=== PATIENT | male | born 1970 | race Hispanic/Latino ===

== ENCOUNTER 2018-03-13 20:55 | Inpatient (IN) | payer SELFPAY ==
[~2018-03-13 20:55] MED LIST: Calcium Chloride 1 GM/10 ML Abboject SYRINGE ONE; Dexamethasone 20 MG/5 ML VIAL ONE; Glycopyrrolate 0.2 MG/ML 5 ML SYRINGE ONE; ISOVUE-370 76%-LOCM 1 ML ONE; Ondansetron HCl/PF 4 MG/2 ML Vial ONE; PHENYLEPHRINE-NS 100 MCG/ML 10 ML SYRINGE ONE; Sodium Bicarb 50 MEQ/50 ML Abboject 8.4% SYRINGE ONE; Succinylcholine Chloride 20 MG/ML 10 ml SYRINGE FS ONE
[2018-03-13 21:41] LABS: Band 24 % (5-11); Hemoglobin 15.3 g/dL (14.0-18.0); Lymphocytes 8 % (21-51); MDiff Complete? YES; Mean Corpuscular HGB CONC 35.2 g/dL (32.0-36.0); Mean Corpuscular Hemoglobin 33.3 pg (27.0-31.0); Mean Corpuscular Volume 94.5 fL (78.0-98.0); Mean Platelet Volume 9.2 fL (7.4-10.4); Monocytes 4 % (0-10); Neutrophil 64 % (42-75); PLT Morphology Comment PLT clumps seen-ADEQ; Platelet Clumps MODERATE; RBC Distribution Width 12.3 % (11.5-14.5); Red Blood Cell (RBC) Count 4.59 mill/uL (4.70-6.10); White Blood Cell (WBC) Count 18.3 thou/uL (4.8-10.8)
[2018-03-13 21:47] LABS: ALT (SGPT) 71 U/L (8-55); AST (SGOT) 40 U/L (5-34); Albumin 4.4 g/dL (3.5-5.0); Alkaline Phosphatase 68 U/L (40-150); Anion Gap 16 mmol/L (10-20); BUN (Urea Nitrogen) 23 mg/dL (8.9-20.6); Bilirubin, Total 1.6 mg/dL (0.2-1.2); CK (CPK) 148 U/L (30-200); Calc. Creatinine Clearance 0 mL/min (70-130); Calcium 9.6 mg/dL (7.8-10.44); Carbon Dioxide 21 mmol/L (22-29); Chloride 105 mmol/L (98-107); Estimated GFR-MDRD 36; Globulin 3.4 g/dL (2.4-3.5); Glucose 164 mg/dL (70-105); Protein, Total 7.8 g/dL (6.0-8.3); Sodium 139 mmol/L (136-145)
[2018-03-13 21:50] LABS: Potassium 2.9 mmol/L (3.5-5.1)
[2018-03-13] MEDS ORDERED: Piperacillin/Tazobactam 3.375 GM in Sodium Chloride 0.9% 100 ML IVPB SCH (22:00)
--- NOTE | 2018-03-13 22:17 | CT ---
CONTRAST ENHANCED CT ABDOMEN AND PELVIS: TECHNIQUE: IV contrast was given. Oral contrast was not given, per the order of the ordering physician. FINDINGS: The lung bases demonstrate a small area of calcification in the right middle lobe. The liver and spl een are unremarkable. The gallbladder has been surgically removed. The pancreas is unremarkable. T he adrenal glands and kidneys are unremarkable, except for a nonobstructing, approximately 2 mm calcu jeanie in the lower pole of the left kidney. Additional small mid pole left renal calculi are also pres ent. There is abnormal dilatation and some enhancement of the mid and distal small bowel loops, compatible with enteritis. There is also abnormal dilatation and enhancement involving the appendix, dilated up to approximately 8 mm. There is also some periappendiceal fat stranding. Findings concerning for appendicitis. There is also enhancement and some thickening involving the ascending colon and hepatic flexure, conc erning for colitis. IMPRESSION: Enteritis, colitis, and appendicitis changes. Findings discussed with Dr. Patel at 10:08 p.m. on 03/13/2018. CODE CR POS: [id number]
[2018-03-13] MEDS ORDERED: Potassium Chloride 40 MEQ in Sodium Chloride 0.9% 250 ML 250 ML IVPB SCH (22:30)
[2018-03-13] MEDS ORDERED: Norepinephrine 8 MG/250 ML BAG IVPB PRN (22:38)
[2018-03-13] MEDS ORDERED: Bupivacaine HCl 0.25%/Epi 0.0005/PF 10 ML VIAL FS ONE (22:42)
[2018-03-13] MEDS ORDERED: Fentanyl 100 MCG/2 ML VIAL ONE (23:00)
[2018-03-13 23:08] LABS: Bilirubin Small (Negative); Blood, Urine Negative (Negative); Clarity CLOUDY (Clear); Glucose, Urine (Dipstick) 100 mg/dL (Negative); Leukocyte Small (Negative); Nitrite Negative (Negative); Protein, Urine (Dipstick) 100 mg/dL (Neg-Trace); Specific Gravity, Urine 1.019 (1.002-1.036)
[2018-03-13 23:10] LABS: Bacteria/HPF None Seen HPF (None Seen); Yeast-AUWi Flag 18.8 (0-25.0)
[2018-03-13 23:25] LABS: Hyaline Casts/LPF >50 HYALINE CAST LPF (0-3 Hyaline); Other Casts/LPF 0-3 WBC CASTS LPF (0-3 Hyaline)
[2018-03-13 23:26] LABS: Renal Epithelial 0-3 HPF (0-3)
[2018-03-14] MEDS ORDERED: Promethazine HCl 25 MG/ML VIAL IM PRN ×2 (00:15→01:26)
[2018-03-14] MEDS ORDERED: Morphine 4 MG/ML Carpuject SLOW IVP PRN (00:15)
[2018-03-14] MEDS ORDERED: Dextrose 5% in Water 1,000 ML IV PRN (00:15)
[2018-03-14] MEDS ORDERED: Dextrose 50% Abboject 50 ML SYRINGE SLOW IVP PRN (00:15)
[2018-03-14] MEDS ORDERED: HYDROcodone/Acetaminophen 10/325 mg Tablet PO PRN (00:15)
[2018-03-14] MEDS ORDERED: hydrALAZINE 20 MG/ML VIAL SLOW IVP PRN (00:15)
[2018-03-14] MEDS ORDERED: Insulin Regular 300 UNITS/3 ML VIAL SC PRN (00:15)
[2018-03-14] MEDS ORDERED: SUGAMMADEX SODIUM 200 MG/2 ML VIAL ONE (00:23)
[2018-03-14] MEDS ORDERED: Naloxone HCl 0.4 mg/ml Vial ONE (00:31)
[2018-03-14] MEDS ORDERED: PHENYLEPHRINE-NS 100 MCG/ML 10 ML SYRINGE ONE ×2 (00:36→00:47)
[2018-03-14] MEDS ORDERED: Succinylcholine Chloride 20 MG/ML 10 ml SYRINGE FS ONE (00:38)
[2018-03-14] MEDS ORDERED: Calcium Chloride 1 GM/10 ML Abboject SYRINGE ONE (00:46)
[2018-03-14] MEDS ORDERED: Sodium Bicarb 50 MEQ/50 ML Abboject 8.4% SYRINGE ONE (00:46)
[2018-03-14] MEDS ORDERED: Promethazine HCl 25 MG/ML VIAL SLOW IVP PRN (01:26)
[2018-03-14] MEDS ORDERED: Ondansetron HCl/PF 4 MG/2 ML Vial IVP PRN (01:26)
[2018-03-14] MEDS ORDERED: Albumin 5% 500 ML ONE (01:45)
--- NOTE | 2018-03-14 01:59 | OP ---
DATE OF PROCEDURE: 03/14/2018 PREOPERATIVE DIAGNOSIS: Acute appendicitis. SURGEON: Fernandez Mehta M.D. PROCEDURE PERFORMED: Laparoscopic appendectomy. INDICATIONS: This is a 48-year-old male who presented with a day and a half history of right lower q uadrant pain. CT shows acute appendicitis. FINDINGS: He had a gangrenous appendix with local perforation. PROCEDURE IN DETAIL: After informed consent was obtained, the patient was taken to the operating brauilo m and given general endotracheal anesthesia. He was placed in the supine position. The abdomen was prepped and draped in usual fashion. Local anesthesia infiltrated subcutaneously and deep. A subumb ilical incision was performed. Subcu divided sharply. The fascia grasped and two stay sutures of 0 Vicryl placed each side of midline. Midline incised. Digital palpation revealed no local adhesions. A blunt 10-12 mm trocar inserted. Pneumoperitoneum was created to a pressure of 15 mmHg. Zero deg ree laparoscope inserted under direct vision, two 5-mm ports were placed, one suprapubic and one righ t lateral abdomen. The appendix was gangrenous. The mesoappendix was divided utilizing the LigaSure . The base of the appendix divided utilizing the linear 45 mm white load stapler. The appendix was placed in an Endosac and removed from the abdomen through the umbilicus in the Endosac. Hemostasis a ssured, but there was some purulent-looking fluid. This was aspirated and collected in a trap for cu lture. Then, the abdomen was irrigated. A drain was placed and brought out through the suprapubic a ana and placed along the pelvis and right gutter. Trocars and retractors removed. The fascia closed with interrupted 0 Vicryl suture. The skin closed with interrupted 4-0 Rapide. Dermabond applied. The patient tolerated the procedure well and was transferred to recovery in fair condition.
[2018-03-14] MEDS ORDERED: Potassium Chloride 10 MEQ in Premix Bag 1 BAG IVPB SCH (02:00)
--- NOTE | 2018-03-14 02:18 | HP ---
CHIEF COMPLAINT: Right lower quadrant abdominal pain. HISTORY OF PRESENT ILLNESS: A 48-year-old male with a 1.5-day history of right lower quadrant pain a ssociated with nausea, vomiting, decreased appetite. He came in hypotensive and was given 3 liters o f IV fluids, his pressure has come up some. PAST MEDICAL HISTORY: Anxiety. PAST SURGICAL HISTORY: Kidney stones. MEDICATIONS: None. SOCIAL HISTORY: No alcohol, tobacco. He is . ALLERGIES: No known drug allergies. PHYSICAL EXAMINATION: VITAL SIGNS: Temperature 98.1, pulse 110, blood pressure 82/56. GENERAL: He is awake, alert, lying still. HEENT: Unremarkable. LUNGS: Clear. HEART: Regular rate and rhythm. ABDOMEN: Soft, nondistended, percussion, tenderness in right lower quadrant. EXTREMITIES: Unremarkable. LABORATORY AND X-RAY FINDINGS: White count 18.3, H and H of 15 and 43. He has , electrolytes s how an elevated glucose at 164. His potassium is 2.9. His creatinine is 1.99, BUN is 25. Total elijah irubin is 1.6, AST of 40, ALT of 71. CT shows acute appendicitis with some dilatation of the mid and distal small bowel loops and thickening of these loops. ASSESSMENT: Acute appendicitis. PLAN: Laparoscopic appendectomy. CONSENT: I discussed the planned procedure as well as risk of bleeding, infection, injury to bowel, bladder, need to open. He understands and gives informed consent.
[2018-03-14] MEDS: Lactated Ringer's 1,000 ML IV SCH ×3 (03:03→20:11)
[2018-03-14 03:06] VITALS: BMI 31.0
[2018-03-14 03:46] LABS: Anion Gap 11 mmol/L (10-20); BUN (Urea Nitrogen) 17 mg/dL (8.9-20.6); Calc. Creatinine Clearance 103 mL/min (70-130); Calcium 8.8 mg/dL (7.8-10.44); Carbon Dioxide 24 mmol/L (22-29); Chloride 110 mmol/L (98-107); Estimated GFR-MDRD 73; Glucose 149 mg/dL (70-105); Potassium 3.6 mmol/L (3.5-5.1); Sodium 141 mmol/L (136-145)
[2018-03-14 04:47] LABS: Band 37 % (5-11); Lymphocytes 5 % (21-51); MDiff Complete? YES; Mean Corpuscular Hemoglobin 33.5 pg (27.0-31.0); Mean Corpuscular Volume 95.7 fL (78.0-98.0); Mean Platelet Volume 7.5 fL (7.4-10.4); Monocytes 1 % (0-10); Neutrophil 57 % (42-75); PLT Morphology Comment Appears Adequate; Platelet Count 150 thou/uL (130-400); RBC Distribution Width 12.3 % (11.5-14.5); Red Blood Cell (RBC) Count 3.58 mill/uL (4.70-6.10); White Blood Cell (WBC) Count 14.8 thou/uL (4.8-10.8)
--- NOTE | 2018-03-14 08:35 | RAD ---
CHEST 1 VIEW: HISTORY: Central line placement. FINDINGS: Cardiac silhouette is magnified by projection. Pulmonary vasculature is slightly engorged with mild bilateral perihilar infiltrates, most pronounced at each suprahilar level. A very small amount of pl eural fluid right minor fissure. Linear atelectasis right lung base. No evidence of pneumothorax on this portable supine exam. IMPRESSION: Bilateral hilar prominence favored to represent borderline pulmonary vascular congestion. Continued radiographic followup suggested. POS: CHAY
[2018-03-14] MEDS: Famotidine/PF 20 mg/2ml Vial SLOW IVP SCH ×2 (09:15→20:11)
[2018-03-14] MEDS: Enoxaparin Sodium 40 MG/0.4 ML SYRINGE SC SCH (09:15)
[2018-03-14 10:41] LABS: ALT (SGPT) 150 U/L (8-55); AST (SGOT) 114 U/L (5-34); Albumin 3.5 g/dL (3.5-5.0); Alkaline Phosphatase 42 U/L (40-150); Bilirubin, Total 1.9 mg/dL (0.2-1.2); Protein, Total 5.6 g/dL (6.0-8.3)
--- NOTE | 2018-03-14 10:48 | CON ---
DATE OF CONSULTATION: 03/14/2018 SERVICE: Pulmonary Medicine REASON FOR CONSULTATION: ICU patient. HISTORY OF PRESENT ILLNESS: The patient is a 48-year-old male with past medical history significant for essentially nothing who presented to the hospital with a 1-2 day history of right lower quadrant abdominal discomfort, nausea and vomiting. He presented to the Emergency Department and was ultimately discovered to have appendicitis. On a surgical exploration, it was noted to be gangrenous with a mild perforation. In the postop period, he became unstable and was not moving very much air. He was not breathing well. He was bridged with a little bit of BiPAP. This morning, he is off the BiPAP and he is breathing comfortably. I have aggressively wean down his oxygen down to room air. He denies any shortness of breath, nausea or vomiting. He is having flatus, but has not passed any stools. His abdominal pain is still present, but significantly improved compared to presentation based on his recollection. PAST MEDICAL HISTORY: Anxiety disorder. PAST SURGICAL HISTORY: 1. Surgical procedure for nephrolithiasis. 2. Appendectomy. SOCIAL HISTORY: Negative for alcohol, tobacco or illicit drug use. He is . He is Croatian speaking primarily. FAMILY HISTORY: Noncontributory. ALLERGIES: No known drug allergies. MEDICATIONS: List of his inpatient medications were reviewed. No specific updates were made at this time. REVIEW OF SYSTEMS: General, head, ears, eyes, nose, throat, cardiovascular, respiratory, GI, , musculoskeletal, neurologic and skin is negative except as mentioned in the HPI. PHYSICAL EXAMINATION: VITAL SIGNS: Afebrile, pulse 93, blood pressure 98/66, respirations 25, saturation 95% on room air. GENERAL: The patient is awake and alert, in no apparent distress. LUNGS: Decent air entry. Rhonchi are present, but clear with cough. No prolonged expiratory phase, wheezing or crackles are appreciated. HEART: Normal rate, regular. ABDOMEN: Soft. It is tender to palpation which is worse in the right lower quadrant. That being said, there is no rebound or guarding present. Bowel sounds are active. GENITOURINARY: Frank catheter in place. NEUROLOGIC: Grossly nonfocal. LABORATORY DATA: WBC 14.8 and down trending, hemoglobin 12.0, platelets 150, 000. Band count is 37%, which is up trending. Creatinine 1.08 and improving, potassium 3.6. Basic metabolic profile is otherwise unremarkable. Lactate is trending downward to 2.0. AST and ALT are marginally elevated. Total bilirubin 1.6. Urinalysis is positive for protein, glucose, and trace ketones. Otherwise, it is equivocal. Blood cultures x2 are unremarkable. IMAGIN. Chest x-ray demonstrates pulmonary vascular congestion which is quite mild. No acute cardiopulmonary abnormalities otherwise identified. 2. CT of the chest demonstrates a calcified pulmonary nodule. No obvious consolidation is present. There is a small rim of pleural effusions which appear to be bilateral. Findings consistent with appendicitis are present. ASSESSMENT: 1. Severe sepsis. 2. Acute kidney injury. 3. Acute appendicitis. 4. Acute hypoxic respiratory failure, resolved. PLAN: The patient is really doing well. My suspicion is that his hypoxic event was either associated with the anesthesia and hypoventilation, or the fluid resuscitation. Either way, he has been weaned down to room air, he is not requiring any Levophed. His blood pressures are firming up nicely. The patient actually feels much improved. We will transition him out of the ICU to the surgical unit. If he continues to do well, he will likely be transitioned to p.o. antibiotics and discharged from the hospital tomorrow morning. Pulmonary will continue to follow for the time being. 70 minutes have been devoted to this patient in various activities. I personally reviewed all imaging studies and laboratory data noted within this document. For fifty percent of this time, I was interacting with the patient at the bedside or coordinating care with the care team. For the remainder of the time I was immediately available to the patient in the hospital unit. FLACO
[2018-03-14] MEDS: Piperacillin/Tazobactam 3.375 GM in Sodium Chloride 0.9% 100 ML IVPB SCH ×5 (12:14→23:00)
--- NOTE | 2018-03-14 12:32 | ULT ---
RIGHT UPPER QUADRANT ULTRASOUND: Date: 03-14-18 Comparison: None. History: Abnormal liver function tests. Technique: Multiplanar grayscale sonographic imaging of the right upper quadrant obtained. FINDINGS: The mail courier reports a negative Patel's sign. The pancreas is not well visualized secondary to donny wel gas. The hepatic parenchyma is echogenic and heterogeneous, suggesting hepatocellular disease, horner ch as steatosis. Common bile duct measures 6 mm, within normal limits, given history of cholecystectomy. Right kidney measures 10.3 cm in craniocaudal dimension and demonstrates no stone, hydronephrosis or mass. IMPRESSION: Findings suggesting hepatic steatosis. The patient is status post cholecystectomy. No biliary dilatat ion noted. POS: CHAY
[2018-03-14] MEDS: HYDROcodone/Acetaminophen 10/325 mg Tablet PO PRN (22:52)
[2018-03-15] MEDS: Lactated Ringer's 1,000 ML IV SCH (05:21)
[2018-03-15] MEDS: Piperacillin/Tazobactam 3.375 GM in Sodium Chloride 0.9% 100 ML IVPB SCH (05:21)
[2018-03-15] MEDS: Ondansetron HCl/PF 4 MG/2 ML Vial IVP PRN (05:28)
[2018-03-15 07:47] LABS: #Eosinphils 0.1 thou/uL (0.0-0.7); #Lymphocytes 1.1 thou/uL (1.20-3.40); #Monocytes 0.6 thou/uL (0.11-0.59); #Neutrophils 8.8 thou/uL (1.40-6.50); %Basophils 0.2 % (0.0-1.0); %Eosinophils 0.6 % (0.0-10.0); %Lymphocytes 10.5 % (21.0-51.0); %Monocytes 5.7 % (0.0-10.0); %Neutrophils 83.1 % (42.0-75.0); Hemoglobin 11.9 g/dL (14.0-18.0); Mean Corpuscular HGB CONC 34.4 g/dL (32.0-36.0); Mean Corpuscular Hemoglobin 33.4 pg (27.0-31.0); Mean Corpuscular Volume 97.3 fL (78.0-98.0); Mean Platelet Volume 9.3 fL (7.4-10.4); Platelet Count 124 thou/uL (130-400); RBC Distribution Width 12.4 % (11.5-14.5); Red Blood Cell (RBC) Count 3.56 mill/uL (4.70-6.10); White Blood Cell (WBC) Count 10.5 thou/uL (4.8-10.8)
[2018-03-15] MEDS: HYDROcodone/Acetaminophen 10/325 mg Tablet PO PRN ×3 (08:06→22:57)
[2018-03-15] MEDS: Famotidine 20 MG TAB PO SCH ×2 (08:06→20:51)
[2018-03-15] MEDS: Enoxaparin Sodium 40 MG/0.4 ML SYRINGE SC SCH (08:07)
[2018-03-15] MEDS: Piperacillin/Tazobactam 3.375 GM, IV Admixture Fee-Chemo 1 UNITS in Sodium Chloride 0.9... IVPB SCH ×3 (12:03→23:50)
--- NOTE | 2018-03-15 14:37 | PRG ---
DATE OF SERVICE: 03/15/2018 SERVICE: Pulmonary Medicine. INTERVAL HISTORY: The patient is doing great from a respiratory standpoint. He has been up walking the halls. He tripped a little bit and his IV came dislodged. He was leaking a little bit of fluid. That being said, he has really made turn in a positive direction. While he has been up walking masha und, he has not had any significant orthostasis. PHYSICAL EXAMINATION: VITAL SIGNS: Afebrile, pulse 71, blood pressure 110/72, respirations 14, saturation 95% on room air. GENERAL: The patient is awake, alert, in no apparent distress. LUNGS: Excellent air entry. There is no prolonged expiratory phase or wheezing present. HEART: Normal rate and regular. ABDOMEN: Soft, nontender, nondistended. Bowel sounds are positive. MUSCULOSKELETAL: No cyanosis or clubbing. There is no pitting in the bilateral lower extremities. NEUROLOGIC: Grossly nonfocal. LABORATORY DATA: WBC 10.5, hemoglobin 11.9, platelets 124,000 and improving. AST and ALT are gently up-trending, direct bilirubin 1.0, total bilirubin 1.9 and gently up-trending. Basic metabolic prof ile is, otherwise, unremarkable. Potassium has improved to 3.6. Lactate has resolved to 2.0. Perit cooper fluid is growing Klebsiella and Enterobacter. Urine cultures negative to date. Blood cultures are growing Klebsiella pneumoniae in 1/2 and are gram-negative puma in the other. IMAGING: Abdominal ultrasound demonstrates hepatic steatosis. Patient is now status post cholecyste ctomy. No biliary dilatation is identified. ASSESSMENT: 1. Severe sepsis. 2. Acute kidney injury, resolved. 3. Acute appendicitis. 4. Bacteremia secondary to Klebsiella pneumoniae. 5. Acute hypoxic respiratory failure, resolved. DISCUSSION AND PLAN: The patient is really doing quite well from a respiratory standpoint. We will need to await the sensitivities of the Klebsiella and get him on antibiotics directed at that. He wi ll likely need to stay in the hospital until those sensitivities result. Hopefully, we can get by wi th p.o. fluoroquinolone. He will need a minimum of 2 weeks of antibiotics. At this point, he has no further requirements for Critical Care opinion and I will sign off. Please call with additional que stions or concerns moving forward.
[2018-03-16] MEDS: Ondansetron HCl/PF 4 MG/2 ML Vial IVP PRN (02:09)
[2018-03-16] MEDS: HYDROcodone/Acetaminophen 10/325 mg Tablet PO PRN (05:06)
[2018-03-16] MEDS: Piperacillin/Tazobactam 3.375 GM, IV Admixture Fee-Chemo 1 UNITS in Sodium Chloride 0.9... IVPB SCH ×2 (05:59→12:42)
[2018-03-16 06:37] LABS: ALT (SGPT) 114 U/L (8-55); AST (SGOT) 40 U/L (5-34); Albumin 3.7 g/dL (3.5-5.0); Alkaline Phosphatase 48 U/L (40-150); Anion Gap 10 mmol/L (10-20); BUN (Urea Nitrogen) 10 mg/dL (8.9-20.6); Bilirubin, Total 0.8 mg/dL (0.2-1.2); Calc. Creatinine Clearance 130 mL/min (70-130); Calcium 8.5 mg/dL (7.8-10.44); Carbon Dioxide 26 mmol/L (22-29); Chloride 104 mmol/L (98-107); Estimated GFR-MDRD Greater than 90; Globulin 2.7 g/dL (2.4-3.5); Glucose 97 mg/dL (70-105); Potassium 3.6 mmol/L (3.5-5.1); Protein, Total 6.4 g/dL (6.0-8.3); Sodium 136 mmol/L (136-145)
[2018-03-16] MEDS: Famotidine 20 MG TAB PO SCH (08:32)
[2018-03-16] MEDS: Enoxaparin Sodium 40 MG/0.4 ML SYRINGE SC SCH (08:32)
[2018-03-16 11:24] VITALS: BP 116/77; TEMP 98.2
--- NOTE | 2018-03-16 15:23 | DIS ---
DISCHARGE DIAGNOSIS: Acute ruptured appendicitis with sepsis. PROCEDURES DURING ADMISSION: Laparoscopic appendectomy and drainage of periappendiceal abscess. HOSPITAL COURSE: The patient was admitted. He was hypotensive. He responded somewhat to fluid bolu ses. He was taken to the operating room where he underwent a laparoscopic appendectomy and was found to have a ruptured appendicitis. Postoperatively, he remained somewhat hypertensive, but with fluid and support, he did better. He was observed in the ICU overnight. The next day, he felt much annemarie r. He is now tolerating a diet. His bowels are working well. He is afebrile. He has minimal pain, minimal drain output, drain has been removed. His temperature is 98.3, pulse 73, blood pressure 118 /76. He is discharged home in good condition on doxycycline 100 p.o. b.i.d. for 14 days, Maria Guadalupe and Mathew sears. He will follow up with me in 2 weeks.
== END 2018-03-16 13:10 | disposition home or self-care (01) | DRG 853 ==
LOC: ERS 20:55 → SDC 23:15 → CCU 03-14 00:15 → SURG A 03-14 11:33
PROVIDERS: ADMIT Surgery; ATTEND Surgery
PROC: 0DTJ4ZZ Resection of Appendix, Percutaneous Endoscopic Approach (ICD-10-PCS; principal; 2018-03-14)
DX: A41.9 Sepsis, unspecified organism (principal); K35.3 Acute appendicitis with localized peritonitis; J96.01 Acute respiratory failure with hypoxia; N17.9 Acute kidney failure, unspecified; R65.20 Severe sepsis without septic shock; B96.1 Klebsiella pneumoniae [K. pneumoniae] as the cause of diseases classified elsewhere
CPT/HCPCS: 36415; 36416; 71045; 74177; 76705; 80048; 80053; 80076; 81003; 81015; 82550; 83605; 85025; 87040; 87070; 87077; 87086; 87149; 87186; 87205; 88304; 93005; 94660; 96360; 96365; J1100; J1650; J2270; J2310; J2405; J2543; J3010; J3480; J7050; J7620; P9045; S0028

== ENCOUNTER 2023-09-01 10:27 | Day surgery (SDC) | payer BC ==
[~2023-09-01 10:27] MED LIST changes: -Calcium Chloride 1 GM/10 ML Abboject SYRINGE ONE; -Dexamethasone 20 MG/5 ML VIAL ONE; -Glycopyrrolate 0.2 MG/ML 5 ML SYRINGE ONE; -ISOVUE-370 76%-LOCM 1 ML ONE; +Iopamidol-370 76% 500 ML MDV (1 ML CHARGE) ONE; -Ondansetron HCl/PF 4 MG/2 ML Vial ONE; -PHENYLEPHRINE-NS 100 MCG/ML 10 ML SYRINGE ONE; -Sodium Bicarb 50 MEQ/50 ML Abboject 8.4% SYRINGE ONE; -Succinylcholine Chloride 20 MG/ML 10 ml SYRINGE FS ONE
[2023-09-01] MEDS ORDERED: Acetaminophen 500 MG TAB ONE (10:57)
[2023-09-01] MEDS ORDERED: Ketorolac Tromethamine 30 MG (1 mL) VIAL ONE (10:57)
[2023-09-01 11:49] LABS: #Monocytes 0.9 thou/uL (0.11-0.59); #Neutrophils 16.4 thou/uL (1.40-6.50); %Basophils 0.1 % (0.0-1.0); %Eosinophils 0.1 % (0.0-10.0); %Monocytes 4.6 % (0.0-10.0); %Neutrophils 87.9 % (42.0-75.0); Hematocrit 40.6 % (42.0-52.0); Mean Corpuscular HGB CONC 34.5 g/dL (32.0-36.0); Mean Corpuscular Hemoglobin 32.2 pg (27.0-31.0); Mean Corpuscular Volume 93.3 fl (78.0-98.0); Mean Platelet Volume 9.8 fL (7.4-10.4); Platelet Count 281 10x3/uL (130-400); RBC Distribution Width 13.4 % (11.5-14.5); Red Blood Cell (RBC) Count 4.35 mill/uL (4.70-6.10); White Blood Cell (WBC) Count 18.7 10x3/uL (4.8-10.8)
[2023-09-01 12:09] LABS: ALT (SGPT) 99 U/L (8-55); AST (SGOT) 43 U/L (5-34); Albumin 3.9 g/dL (3.5-5.0); Alkaline Phosphatase 91 U/L (40-110); Anion Gap 12 mmol/L (10-20); BUN (Urea Nitrogen) 12 mg/dL (8.4-25.7); Calc. Creatinine Clearance 0 mL/min (70-130); Calcium 8.5 mg/dL (7.8-10.44); Carbon Dioxide 23 mmol/L (22-29); Chloride 101 mmol/L (98-107); Estimated GFR 95; Globulin 3.6 g/dL (2.4-3.5); Glucose 112 mg/dL (70-105); Potassium 3.9 mmol/L (3.5-5.1); Protein, Total 7.5 g/dL (6.0-8.3); Sodium 132 mmol/L (136-145)
[2023-09-01] MEDS ORDERED: Ondansetron PF 4 MG/2 ML Vial ONE ×2 (12:24→16:01)
[2023-09-01] MEDS ORDERED: Sodium Chloride 0.9% 100 ML ONE (12:24)
[2023-09-01] MEDS ORDERED: Piperacillin/Tazobactam 4.5 GM VIAL ONE (12:24)
[2023-09-01 12:25] LABS: Bilirubin Negative (Negative); Blood, Urine Negative (Negative); CAUTI Indications for Culture Pelvic or flank pain; Clarity Clear (Clear); Glucose, Urine (Dipstick) Normal (Negative); Ketone, Urine 10 mg/dL (Negative); Leukocyte Negative Leu/uL (Negative); Nitrite Negative (Negative); Protein, Urine (Dipstick) 20 mg/dL (Neg-Trace); RBC/HPF 0-3 HPF (0-3); Squamous Epithelial None Seen HPF (0-3); pH, Urine 7.5 (5.0-9.0)
[2023-09-01 12:52] LABS: Bacteria/HPF 1+ HPF (None Seen); Specific Gravity, Urine Greater than 1.060 (1.002-1.036)
[2023-09-01 12:54] LABS: Urine Culture Reflex No No
[2023-09-01] MEDS ORDERED: Vancomycin (BATCH) 1.25 GM in Premix 1 BAG IVPB SCH (14:00)
[2023-09-01] MEDS ORDERED: Lidocaine 1% w/Epinephrine 1:100K 20 ML VIAL ONE (14:01)
[2023-09-01] MEDS ORDERED: Bupivacaine 0.25% 10 ML VIAL ONE (14:01)
[2023-09-01] MEDS ORDERED: Lidocaine 1% PF 5 ML VIAL ONE ×2 (15:49→16:01)
[2023-09-01] MEDS ORDERED: Bupivacaine PF 0.5% 30 ML VIAL ONE (15:49)
[2023-09-01] MEDS ORDERED: EPINEPHrine 1 MG/ML VIAL ONE (15:49)
[2023-09-01] MEDS ORDERED: fentaNYL PF 100 MCG/2 ML SYRINGE ONE ×2 (16:00→16:31)
[2023-09-01] MEDS ORDERED: PROPOFOL 20 ML ONE (16:00)
[2023-09-01] MEDS ORDERED: Midazolam HCl 2 mg/2 ml Vial ONE (16:01)
== END 2023-09-01 18:30 | disposition home or self-care (01) ==
LOC: ERS 10:27 → SDC 14:47
PROVIDERS: ATTEND Specialist
PROC: 0DJD8ZZ Inspection of Lower Intestinal Tract, Via Natural or Artificial Opening Endoscopic (ICD-10-PCS; principal; 2023-09-01)
DX: K61.1 Rectal abscess (principal); Z90.89 Acquired absence of other organs; Z98.890 Other specified postprocedural states
CPT/HCPCS: 36415; 74177; 80053; 81001; 83605; 85025; 87040; 87077; 87149; 87186; J0171; J1885; J2250; J2405; J2543; J2704; J3370; J3490; Q9967; S0020

== ENCOUNTER 2024-09-03 07:34 | Emergency (ER) | payer BC ==
[2024-09-03 08:23] LABS: #Basophils 0.04 10x3/uL (0.0-0.2); %Basophils 0.7 % (0.0-1.0); %Eosinophils 4.4 % (0.0-10.0); %Lymphocytes 28.8 % (21.0-51.0); %Monocytes 5.2 % (0.0-10.0); %Neutrophils 60.7 % (42.0-75.0); Hematocrit 40.8 % (42.0-52.0); Hemoglobin 14.2 g/dL (14.0-18.0); Mean Corpuscular HGB CONC 34.8 g/dL (32.0-36.0); Mean Corpuscular Hemoglobin 31.9 pg (27.0-31.0); Mean Corpuscular Volume 91.7 fL (78.0-98.0); Mean Platelet Volume 10.4 fL (7.4-10.4); Platelet Count 180 10x3/uL (130-400); RBC Distribution Width 13.2 % (11.5-14.5); Red Blood Cell (RBC) Count 4.45 mill/uL (4.70-6.10)
[2024-09-03] MEDS ORDERED: Ketorolac Tromethamine 30 MG (1 mL) VIAL ONE (08:26)
[2024-09-03 08:38] LABS: ALT (SGPT) 58 U/L (8-55); AST (SGOT) 26 U/L (5-34); Albumin 3.7 g/dL (3.5-5.0); Alkaline Phosphatase 73 U/L (40-110); Anion Gap 10 mmol/L (10-20); BUN (Urea Nitrogen) 17 mg/dL (8.4-25.7); Bilirubin, Total 0.4 mg/dL (0.2-1.2); Calc. Creatinine Clearance 0 mL/min (70-130); Calcium 8.7 mg/dL (7.8-10.44); Carbon Dioxide 23 mmol/L (22-29); Chloride 107 mmol/L (98-107); Estimated GFR 102; Globulin 3.7 g/dL (2.4-3.5); Glucose 103 mg/dL (70-105); Lipase 27 U/L (8-78); Protein, Total 7.4 g/dL (6.0-8.3); Sodium 136 mmol/L (136-145)
[2024-09-03 08:58] LABS: Bilirubin Negative (Negative); Blood, Urine 3+ (Negative); CAUTI Indications for Culture Pelvic or flank pain; Clarity Turbid (Clear); Glucose, Urine (Dipstick) Normal (Negative); Ketone, Urine Negative (Negative); Leukocyte Negative Leu/uL (Negative); Nitrite Negative (Negative); Protein, Urine (Dipstick) 50 mg/dL (Neg-Trace); RBC/HPF Greater than 50 HPF (0-3); Specific Gravity, Urine 1.025 (1.002-1.036); Squamous Epithelial None Seen HPF (0-3); Urobilinogen Normal mg/dL (Less than 2); WBC/HPF 0-3 HPF (0-3)
[2024-09-03 08:59] LABS: Bacteria/HPF 1+ HPF (None Seen); Urine Culture Reflex No No
== END 2024-09-03 10:47 | disposition home or self-care (01) ==
LOC: ERS 07:34
DX: N20.2 Calculus of kidney with calculus of ureter (principal)
CPT/HCPCS: 36415; 74176; 80053; 81001; 83605; 83690; 85025; 96374; J1885